=== PATIENT | male | born 1970 | race Caucasian/White ===

== ENCOUNTER 2025-03-08 16:15 | Emergency (ER) | payer OTHER, SELFPAY ==
[2025-03-08 16:32] VITALS: BP 150/92; PULSE 67; TEMP 36.9; O2SAT 99; BMI 38.7
--- NOTE | 2025-03-08 17:08 | XR_ITS ---
The [address] [address] Patient Name: JUDY NEAL MRN: [id number] date: 1970 Sex: M Assigned Patient Location: ER Current Patient Location: ER Accession/Order Number: [id number] Exam Date: 03/08/2025 17:14 Report Date: 03/08/2025 17:48 At the request of: POLO GORDON MD Procedure: XR foot RT min 3V RIGHT FOOT - 3 views CLINICAL HISTORY: pain COMPARISON: None FINDINGS: No fracture or dislocation. Joint spaces preserved. Soft tissues unremarkable. XR/XR foot RT min 3V IMPRESSION: NO ACUTE OSSEOUS FINDINGS. Impression dictated by: Alvin Rubio M.D. 03/08/2025 5:48 PM Dictation Location: [place] [address] Electronically authenticated by: [id number] Y Date: 03/08/2025 17:48
--- NOTE | 2025-03-08 18:32 | ED_ITS ---
HPI HPI - Extremity Injury (Lower) General Chief Complaint: Extremity Injury, Lower Stated Complaint: RIGHT PINKY TOE HURTS Time Seen by Provider: 03/08/25 17:11 Source: patient Mode of arrival: walk-in History of Present Illness HPI Narrative: Patient presents to the ED with right fifth toe pain after jamming it into a case that was against a wall two days ago. He reports swelling, bruising, and pain, particularly with walking. He notes mild tingling with prolonged ambulation. No open wounds or other injuries. Denies pain elsewhere in the foot, ankle, or knee. No systemic symptoms. Related Data Allergies Allergy/AdvReac Type Severity Reaction Status Date / Time No Known Drug Allergies Allergy Verified 03/08/25 16:36 PFSH PFSH Social History Little interest or pleasure in doing things: not at all Feeling down, depressed, or hopeless: not at all Exam Narrative Exam Narrative: * Right fifth toe: Marked ecchymosis; nail intact and uninjured. Capillary refill distal to toe normal. * Foot/Ankle/Knee: No tenderness over metatarsals, ankle, or knee. Pulses intact bilaterally. No deformity. * General: Patient alert, oriented, pleasant, interactive, in no acute distress. Constitutional Vital Signs, click to edit/add: Last Vital Signs Temp 98.5 F 03/08/25 16:32 Pulse 67 03/08/25 16:32 Resp 16 03/08/25 16:32 BP 150/92 H 03/08/25 16:32 Pulse Ox 99 03/08/25 16:32 O2 Del Method Room Air 03/08/25 16:32 Course Vital Signs Vital signs: Vital Signs Temperature 98.5 F 03/08/25 16:32 Pulse Rate 67 03/08/25 16:32 Respiratory Rate 16 03/08/25 16:32 Blood Pressure 150/92 H 03/08/25 16:32 Pulse Oximetry 99 03/08/25 16:32 Oxygen Delivery Method Room Air 03/08/25 16:32 Temperature 98.5 F 03/08/25 16:32 Pulse Rate 67 03/08/25 16:32 Respiratory Rate 16 03/08/25 16:32 Blood Pressure 150/92 H 03/08/25 16:32 Pulse Oximetry 99 03/08/25 16:32 Oxygen Delivery Method Room Air 03/08/25 16:32 MDM - Extremity Injury (Lower) MDM Narrative Medical decision making narrative: Patient presents with right fifth toe contusion after minor trauma. No fracture or dislocation seen on imaging. Pain and swelling likely secondary to soft tissue injury. Discussed conservative management including: * Elevation of the foot * Ice application as needed * Limiting walking or weight-bearing to reduce discomfort * Use of a postoperative or stiff-soled shoe (patient already has one at home) * Return precautions reviewed Patient tolerated discussion well, is agreeable to home management, and understands to return to the ED if symptoms worsen. Discharge Plan Discharge Chief Complaint: Extremity Injury, Lower Clinical Impression: Contusion of toe without damage to nail Patient Disposition: Home, Self-Care Time of Disposition Decision: 18:35 Condition: Good Print Language: Yi Instructions: Contusion in Adults (ED) Additional Instructions: Discharge Instructions / AVS: * Pain management: Use acetaminophen or ibuprofen as directed for pain. * Activity: Limit walking; rest and elevate the foot as much as possible. * Ice: Apply ice packs 15?20 minutes every 2?3 hours for the first 48 hours. * Footwear: Continue using a stiff-soled shoe or protective footwear as avail able. * Return to ED if: * Increasing pain, swelling, or redness * Numbness or persistent tingling * Open wounds, bleeding, or pus formation * Inability to move the toe * Follow-up: With primary care or podiatry if pain/swelling does not improve in 1?2 weeks. Referrals: Geoffrey Garcia MD [Primary Care Provider, Family Practice] - 1 week
== END 2025-03-08 18:59 | disposition home or self-care (01) ==
PROVIDERS: Emergency Provider Emergency Medicine; PCP Family Medicine
DX: S90.121A Contusion of right lesser toe(s) without damage to nail, initial encounter (principal); W22.03XA Walked into furniture, initial encounter
CPT/HCPCS: 73630; 99283